=== PATIENT | female | born 1945 | race Caucasian/White ===

== ENCOUNTER → 2017-07-08 | Outpatient (CLI) | payer OTHER ==
[~2017-07-08] MED LIST: AMLO10TA2 PO; AMLO5TAB2 PO; ASPI-1197 PO; ATOR40TA71 PO; BISA5TAB12 PO; BUSP5TAB3 PO; DORZ1DRO5 OP; ESOM40VI2 IV; FENO54TA6 PO; FURO20TA4 PO; ISOS30TA6 PO; LEVO50TA11 PO; LEVO75TA10 PO; METF500T6 PO; METOPROLOL PO; NAPR-1023 PO; OASIS TEARS PLUS; PANT40TA25 PO; TRAZ-144 PO; VALS320T15 PO; VENL-63 PO; VENL150T3 PO; VIT1CAPS47 PO
== END ==
LOC: EDSTATUS 11:00 → SHCH 15:37
PROVIDERS: ATTEND Internal Medicine Cardiovascular Disease
DX: R07.9 Chest pain, unspecified (principal); R06.02 Shortness of breath
CPT/HCPCS: 93306

== ENCOUNTER 2017-07-13 07:44 | Day surgery (SDC) | payer OTHER ==
[2017-07-10 11:29] VITALS: BP 189/101
[2017-07-10 11:43] LABS: BASOPHILS % (AUTO) 0.5 % (0.0-5.0); EOSINOPHILS % (AUTO) 3.1 % (0.0-8.0); HEMATOCRIT 36.1 % (36-48); LYMPHOCYTES % (AUTO) 24.2 % (21.0-51.0); MEAN CORPUSCULAR HEMOGLOBIN 29.2 pg (27.0-33.0); MEAN CORPUSCULAR VOLUME 85.9 fL (79-99); MONOCYTES % (AUTO) 8.5 % (3.0-13.0); NEUTROPHILS % (AUTO) 63.7 % (40.0-77.0); NUCLEATED RED BLOOD CELLS 0.1 % (0.0-0.19); PLATELET COUNT (AUTO) 294 K/uL (130-400); RED BLOOD CELL COUNT(AUTO) 4.19 MIL/uL (4.00-5.50); WHITE BLOOD COUNT (AUTO) 6.8 K/uL (4.8-10.8)
[2017-07-10 11:44] LABS: APPEARANCE,URINE Cloudy (CLEAR); BILIRUBIN,URINE Negative (NEGATIVE); COLOR,URINE Yellow (YELLOW); GLUCOSE, URINE (UA) Negative (NEGATIVE); KETONES,URINE Negative (NEGATIVE); LEUKOCYTE ESTERASE ,URINE Moderate (NEGATIVE); NITRATE,URINE Negative (NEGATIVE); OCCULT BLOOD,URINE Negative (NEGATIVE); PROTEIN,URINE Negative (NEGATIVE)
[2017-07-10 11:54] LABS: CREATININE 1.2 mg/dL (0.5-1.5); POTASSIUM 4.5 mmol/L (3.5-5.1)
[2017-07-10 11:55] LABS: BACTERIA,URINE Few /HPF (None Seen); SQUAMOUS EPITHELIAL CELL,UR Rare /LPF (0-2); WBC,URINE 0-1 /HPF (0-1)
[2017-07-10 11:57] LABS: INR 0.95 (0.85-1.15); PARTIAL THROMBOPLASTIN TIME 23.8 SEC (26.3-35.5)
[2017-07-13] VITALS (9 sets, daily range): BP systolic 141–173; BP diastolic 53–84
[~2017-07-13] VITALS: Ht 160 cm; Wt 84.7 kg
[~2017-07-13 07:44] MED LIST changes: +ACETAMINOPHEN 325 MG TAB PO PRN; -AMLO10TA2 PO; -AMLO5TAB2 PO; -DORZ1DRO5 OP; -ESOM40VI2 IV; -LEVO75TA10 PO; -OASIS TEARS PLUS; +SODIUM CHLORIDE 0.9% 500ML 500 ML IV SCH; -TRAZ-144 PO; -VALS320T15 PO; -VENL-63 PO; -VIT1CAPS47 PO
[2017-07-13] MEDS ORDERED: NAPR-1023 PO (08:35)
[2017-07-13] MEDS ORDERED: AMLO5TAB2 PO (08:35)
[2017-07-13] MEDS ORDERED: VALS320T15 PO (08:35)
[2017-07-13] MEDS ORDERED: LEVO75TA10 PO (08:35)
[2017-07-13] MEDS ORDERED: DORZ1DRO5 OP (08:35)
[2017-07-13] MEDS ORDERED: METF500T6 PO (08:35)
[2017-07-13] MEDS ORDERED: ESOM40VI2 IV (08:35)
[2017-07-13] MEDS ORDERED: OASIS TEARS PLUS (08:35)
[2017-07-13] MEDS ORDERED: VENL-63 PO (08:35)
[2017-07-13] MEDS ORDERED: VIT1CAPS47 PO (08:35)
[2017-07-13] MEDS ORDERED: TRAZ-144 PO (08:35)
[2017-07-13] MEDS ORDERED: SODIUM CHLORIDE 0.9% 1000ML 1,000 ML IV ONE (08:41)
[2017-07-13] MEDS ORDERED: ASPI-1197 PO (08:47)
[2017-07-13] MEDS ORDERED: ISOVUE-370 50ML VIAL IV ONE (11:08)
[2017-07-13] MEDS ORDERED: IOPAMIDOL-370 100 ML VIAL IV ONE (11:08)
[2017-07-13] MEDS ORDERED: NITROGLYCERIN 5 MG/ML 10 ML VIAL IV ONE (11:08)
[2017-07-13] MEDS ORDERED: LIDOCAINE HCL 2% 20ML ONE (11:09)
[2017-07-13] MEDS ORDERED: FENTANYL CITRATE PF 50 MCG/1 ML 2ML VIAL ONE (11:32)
[2017-07-13] MEDS ORDERED: MIDAZOLAM HCL 1 MG/ML 2ML VIAL ONE (11:32)
[2017-07-13] MEDS ORDERED: LABETALOL HCL 5 MG/ML 20ML VIAL IV ONE (12:11)
[2017-07-13] MEDS ORDERED: SODIUM CHLORIDE 0.9% 1000ML 1,000 ML IV SCH (12:16)
[2017-07-13] MEDS ORDERED: AMLO10TA2 PO (12:22)
[2017-07-13] MEDS ORDERED: GLUCAGON 1MG KIT 1 MG ML IM PRN (12:30)
[2017-07-13] MEDS ORDERED: DEXTROSE 50%-WATER 50 ML DISP.SYRIN IV PRN (12:30)
[2017-07-13] MEDS ORDERED: NITROGLYCERIN 0.4 MG SL TAB SL PRN (12:30)
[2017-07-13] MEDS ORDERED: HYDRALAZINE HCL 20 MG/ML VIAL IV PRN (12:30)
[2017-07-13] MEDS ORDERED: METOPROLOL TARTRATE 1 MG/ML 5ML VIAL IV PRN (12:30)
== END 2017-07-13 16:37 | disposition home or self-care (01) ==
LOC: DAH 07:44
PROVIDERS: ATTEND Internal Medicine Cardiovascular Disease
DX: I25.10 Atherosclerotic heart disease of native coronary artery without angina pectoris (principal); E78.5 Hyperlipidemia, unspecified; Z79.899 Other long term (current) drug therapy; Z79.82 Long term (current) use of aspirin
CPT/HCPCS: 36415; 71045; 80048; 81001; 82948 ×2; 85025; 85610; 85730; 93005; 93458; A4606; C1760; C1894 ×2; J1644; J2250; J3010; J3490 ×3; J7030; Q9967 ×2; 99152; 99153

== ENCOUNTER → 2017-08-21 | Outpatient (CLI) | payer OTHER ==
[~2017-08-21] MED LIST changes: -ACETAMINOPHEN 325 MG TAB PO PRN; +AMLO10TA2 PO; -BISA5TAB12 PO; -BUSP5TAB3 PO; +DORZ1DRO5 OP; +ESOM40VI2 IV; -FURO20TA4 PO; -LEVO50TA11 PO; +LEVO75TA10 PO; -METOPROLOL PO; +OASIS TEARS PLUS; -PANT40TA25 PO; -SODIUM CHLORIDE 0.9% 500ML 500 ML IV SCH; +TRAZ-185 PO; +VALS320T16 PO; +VENL-63 PO; -VENL150T3 PO; +VIT1CAPS47 PO
== END | disposition home or self-care (01) ==
LOC: SHCH 09:32
PROVIDERS: ATTEND Internal Medicine Cardiovascular Disease
DX: I34.0 Nonrheumatic mitral (valve) insufficiency (principal)
CPT/HCPCS: 93306

== ENCOUNTER → 2017-09-02 | Outpatient (CLI) | payer OTHER ==
[~2017-09-02] MED LIST changes: +ALBUTEROL SULFATE 0.083% 2.5 MG/3 ML INH IH ONE
== END | disposition home or self-care (01) ==
LOC: RESP 08:44
PROVIDERS: ATTEND Internal Medicine Cardiovascular Disease
DX: R06.00 Dyspnea, unspecified (principal)
CPT/HCPCS: 94060; 94727; 94729

== ENCOUNTER → 2017-09-10 | Outpatient (CLI) | payer OTHER ==
[~2017-09-10] MED LIST changes: -ALBUTEROL SULFATE 0.083% 2.5 MG/3 ML INH IH ONE
== END | disposition home or self-care (01) ==
LOC: SHCH 11:00
PROVIDERS: ATTEND Internal Medicine Cardiovascular Disease
DX: I73.9 Peripheral vascular disease, unspecified (principal)
CPT/HCPCS: 93925

== ENCOUNTER → 2018-10-13 | Outpatient (CLI) | payer OTHER ==
[~2018-10-13] MED LIST changes: -AMLO10TA2 PO; +AMLO10TA7 PO; +METF-444 PO; -METF500T6 PO
== END | disposition home or self-care (01) ==
LOC: SHCH 14:34
PROVIDERS: ATTEND Internal Medicine Cardiovascular Disease
DX: I87.2 Venous insufficiency (chronic) (peripheral) (principal)
CPT/HCPCS: 93970

== ENCOUNTER 2019-05-20 08:47 | Day surgery (SDC) | payer OTHER ==
[~2019-05-20] VITALS: Ht 157.5 cm; Wt 76.2 kg
[~2019-05-20 08:47] MED LIST changes: +ADV250 IH; -AMLO10TA7 PO; +AMLO5TAB9 PO; +CETI5TAB20 PO; +CYCL30DR OP; -ESOM40VI2 IV; -FENO54TA6 PO; +HYDR25TA PO; -ISOS30TA6 PO; +LOSA100T58 PO; +MEMA5TAB42 PO; -METF-444 PO; +METF500S7 PO; +METO100T14 PO; +MULT-1203 PO; +MV-M1TAB20 PO; -NAPR-1023 PO; +OXYB-66 PO; +SIMV-43 PO; +SODIUM CHLORIDE 0.9% 1000ML 1,000 ML IV ONE; -TRAZ-185 PO; -VALS320T16 PO; +[UNRECOGNIZED DRUG - OTHER]
[2019-05-20 09:31] VITALS: BP 154/57
[2019-05-20] MEDS ORDERED: FLUT1DIS3 IH (09:55)
[2019-05-20] MEDS ORDERED: PROPOFOL 10 MG/ML 20ML VIAL IV ONE (10:44)
[2019-05-20 11:32] VITALS: BP 116/58
[2019-05-20 11:35] VITALS: BP 127/58
[2019-05-20 11:40] VITALS: BP 139/59
== END 2019-05-20 12:02 | disposition home or self-care (01) ==
LOC: ENDO 08:47 → DAH 08:47 → ENDO 12:02
PROVIDERS: ATTEND Internal Medicine Gastroenterology
DX: D50.9 Iron deficiency anemia, unspecified (principal); K63.5 Polyp of colon; K29.70 Gastritis, unspecified, without bleeding; K57.30 Diverticulosis of large intestine without perforation or abscess without bleeding; K21.9 Gastro-esophageal reflux disease without esophagitis; K59.00 Constipation, unspecified; I13.0 Hypertensive heart and chronic kidney disease with heart failure and stage 1 through stage 4 chronic kidney disease, or unspecified chronic kidney disease; I50.9 Heart failure, unspecified; N18.9 Chronic kidney disease, unspecified; E78.5 Hyperlipidemia, unspecified; E11.22 Type 2 diabetes mellitus with diabetic chronic kidney disease; E11.40 Type 2 diabetes mellitus with diabetic neuropathy, unspecified; F41.9 Anxiety disorder, unspecified; E66.01 Morbid (severe) obesity due to excess calories; M19.90 Unspecified osteoarthritis, unspecified site; Z68.30 Body mass index [BMI] 30.0-30.9, adult; Z79.899 Other long term (current) drug therapy; Z79.84 Long term (current) use of oral hypoglycemic drugs; Z90.710 Acquired absence of both cervix and uterus; Z86.73 Personal history of transient ischemic attack (TIA), and cerebral infarction without residual deficits; Z79.82 Long term (current) use of aspirin; Z85.828 Personal history of other malignant neoplasm of skin; Z82.49 Family history of ischemic heart disease and other diseases of the circulatory system; Z82.3 Family history of stroke
CPT/HCPCS: 36415; 43239; 45380; 45385; 82948 ×2; 84132; 88305; A4215; A4221; A4222; A4223; A4606; A4620; A4663; J2704; J7030

== ENCOUNTER → 2019-08-30 | Outpatient (CLI) | payer OTHER ==
[~2019-08-30] MED LIST changes: -ADV250 IH; -ATOR40TA71 PO; +FLUT1DIS3 IH; -SODIUM CHLORIDE 0.9% 1000ML 1,000 ML IV ONE
== END | disposition home or self-care (01) ==
LOC: SHCH 13:22
PROVIDERS: ATTEND Internal Medicine Cardiovascular Disease
DX: R60.9 Edema, unspecified (principal)
CPT/HCPCS: 93306; 93356

== ENCOUNTER → 2019-09-06 | Outpatient (CLI) | payer OTHER | END | disposition home or self-care (01) | LOC: SHCH 14:52 | PROVIDERS: ATTEND Internal Medicine Cardiovascular Disease | DX: I87.2 Venous insufficiency (chronic) (peripheral) (principal); K21.9 Gastro-esophageal reflux disease without esophagitis | CPT/HCPCS: 93970 ==

== ENCOUNTER → 2020-02-01 | Outpatient (CLI) | payer OTHER ==
--- NOTE | 2020-02-01 10:00 | NUR ---
MBSS COMPLETED. Pt PRESENTS WITH DIVERTICULUM. RECOMMEND MECHANICAL SOFT, MEATS GROUND, THIN LIQUIDS; PILLS WHOLE WITH APPLESAUCE. Pt WAS PROVIDED WITH RESULTS AND RECOMMENDATIONS VIA WRITTEN MODALITY. Pt PROVIDED WITH RECOMMENDATIONS OF GI CONSULT. SHE VERBALIZED UNDERSTANDING AND COMPLIANCE. ALL QUESTIONS ANSWERED AT THIS TIME. Addendum: 02/01/20 at 1445 by HEATHER BROWN [facility] Amended: Links added.
== END | disposition home or self-care (01) ==
LOC: RAH 10:07
PROVIDERS: ATTEND Internal Medicine
DX: I69.391 Dysphagia following cerebral infarction (principal)
CPT/HCPCS: 74230; 92611

== ENCOUNTER → 2020-03-01 | Outpatient (CLI) | payer OTHER ==
[~2020-03-01] MED LIST changes: +AMLO-257 PO; -AMLO5TAB9 PO
== END | disposition home or self-care (01) ==
LOC: RAH 09:09
PROVIDERS: ATTEND Internal Medicine Gastroenterology
DX: R13.10 Dysphagia, unspecified (principal); K22.9 Disease of esophagus, unspecified; K22.5 Diverticulum of esophagus, acquired
CPT/HCPCS: 74220

== ENCOUNTER → 2020-09-04 | Outpatient (CLI) | payer OTHER | END | disposition home or self-care (01) | LOC: SHCH 15:30 | PROVIDERS: ATTEND Internal Medicine Cardiovascular Disease | DX: I65.23 Occlusion and stenosis of bilateral carotid arteries (principal); R09.89 Other specified symptoms and signs involving the circulatory and respiratory systems | CPT/HCPCS: 93880 ==

== ENCOUNTER → 2022-08-11 | Outpatient (CLI) | payer OTHER ==
[~2022-08-11] MED LIST changes: -METF500S7 PO; +METF500S9 PO
== END | disposition home or self-care (01) ==
LOC: SHCH 10:04
PROVIDERS: ATTEND Internal Medicine Cardiovascular Disease
DX: I87.2 Venous insufficiency (chronic) (peripheral) (principal); Z98.890 Other specified postprocedural states
CPT/HCPCS: 93971

== ENCOUNTER → 2022-08-18 | Outpatient (CLI) | payer OTHER ==
[~2022-08-18] MED LIST changes: +DORZ1DRO12 OP; -DORZ1DRO5 OP
[2022-08-18 12:35] LABS: PROTHROMBIN TIME 10.9 SEC (9.6-11.6)
[2022-08-18 12:36] LABS: PARTIAL THROMBOPLASTIN TIME 28.8 SEC (26.3-35.5)
[2022-08-18 12:54] LABS: CREATININE 1.3 mg/dL (0.5-1.5); POTASSIUM 3.8 mmol/L (3.5-5.1)
[2022-08-18 13:02] LABS: BASOPHILS % (AUTO) 0.8 % (0.0-5.0); HEMATOCRIT 35.4 % (36-48); LYMPHOCYTES % (AUTO) 22.4 % (21.0-51.0); MEAN CORPUSCULAR HGB CONC 29.9 g/dL (32.0-36.0); MEAN CORPUSCULAR VOLUME 90.1 fL (79-99); MONOCYTES % (AUTO) 13.1 % (3.0-13.0); NEUTROPHILS % (AUTO) 59.4 % (40.0-77.0); PLATELET COUNT (AUTO) 201 K/uL (130-400); RED BLOOD CELL COUNT(AUTO) 3.93 MIL/uL (4.00-5.50); WHITE BLOOD COUNT (AUTO) 6.3 K/uL (4.8-10.8)
== END | disposition home or self-care (01) ==
LOC: LAB 10:19
PROVIDERS: ATTEND Internal Medicine Cardiovascular Disease
DX: I48.0 Paroxysmal atrial fibrillation (principal); I10 Essential (primary) hypertension; I87.1 Compression of vein
CPT/HCPCS: 36415; 80048; 85025; 85610; 85730

== ENCOUNTER → 2022-10-27 | Outpatient (CLI) | payer OTHER ==
[~2022-10-27] MED LIST changes: -LOSA100T58 PO; +LOSA100T59 PO
== END | disposition home or self-care (01) ==
LOC: SHCH 08:24
PROVIDERS: ATTEND Internal Medicine Cardiovascular Disease
DX: I87.2 Venous insufficiency (chronic) (peripheral) (principal); R60.9 Edema, unspecified; Z98.890 Other specified postprocedural states
CPT/HCPCS: 93971

== ENCOUNTER 2022-11-09 13:05 | Emergency (ER) | payer OTHER ==
[~2022-11-09] VITALS: Ht 147.3 cm; Wt 72.6 kg
[2022-11-09 14:07] LABS: BASOPHILS % (AUTO) 0.7 % (0.0-5.0); EOSINOPHILS % (AUTO) 3.9 % (0.0-8.0); HEMATOCRIT 36.6 % (36-48); LYMPHOCYTES % (AUTO) 20.7 % (21.0-51.0); MEAN CORPUSCULAR HEMOGLOBIN 26.3 pg (27.0-33.0); MEAN CORPUSCULAR HGB CONC 29.5 g/dL (32.0-36.0); MEAN CORPUSCULAR VOLUME 89.1 fL (79-99); MONOCYTES % (AUTO) 11.2 % (3.0-13.0); NEUTROPHILS % (AUTO) 63.1 % (40.0-77.0); PLATELET COUNT (AUTO) 228 K/uL (130-400); RED BLOOD CELL COUNT(AUTO) 4.11 MIL/uL (4.00-5.50); RED CELL DISTRIBUTION WIDTH 15.7 % (11.0-15.5); WHITE BLOOD COUNT (AUTO) 5.6 K/uL (4.8-10.8)
[2022-11-09 14:19] LABS: CREATININE 1.3 mg/dL (0.5-1.5)
[2022-11-09 14:23] LABS: MAGNESIUM 1.8 mg/dL (1.80-2.40); TOTAL PROTEIN, SERUM 6.7 g/dL (6.0-8.3)
[2022-11-09 14:31] LABS: B-TYPE NATRIURETIC PEPTIDE 182 pg/mL (0-100)
[2022-11-09 15:19] VITALS: BP 152/58
== END 2022-11-09 17:44 | disposition home or self-care (01) ==
LOC: EDH 13:05
DX: S59.801A Other specified injuries of right elbow, initial encounter (principal); I10 Essential (primary) hypertension; E11.9 Type 2 diabetes mellitus without complications; Z79.82 Long term (current) use of aspirin; Z79.84 Long term (current) use of oral hypoglycemic drugs; Z79.899 Other long term (current) drug therapy; Z90.710 Acquired absence of both cervix and uterus; Z98.890 Other specified postprocedural states; W18.39XA Other fall on same level, initial encounter; Y93.89 Activity, other specified; Y92.89 Other specified places as the place of occurrence of the external cause; Y99.8 Other external cause status
CPT/HCPCS: 36415; 70450; 72170; 73070; 80053; 83735; 83880; 85025; 93005